=== PATIENT | male | born 1960 | race Caucasian/White ===

== ENCOUNTER 2017-05-30 17:52 | Emergency (ER) | payer OTHER ==
[2017-05-30] MEDS ORDERED: Lidocaine 1% 20 ML MDV INJECT ONE (18:04)
[2017-05-30] MEDS ORDERED: Bupivacaine 0.25% 10 ML SDV INJECT ONE ×2 (18:06→18:34)
[2017-05-30] MEDS ORDERED: Diphtheria,Pertussis(Acell),Tetanus Vaccine 0.5 ML Syringe IM ONE (18:09)
[2017-05-30] MEDS ORDERED: ceFAZolin 1 GM Vial IM ONE (18:09)
--- NOTE | 2017-05-30 18:13 | EDM.PDOC ---
ED HPI GENERAL MEDICAL PROBLEM - General Chief Complaint: Upper Extremity Injury/Pain Stated Complaint: PT HURT RT HAND Time Seen by Provider: 05/30/17 18:03 - History of Present Illness INITIAL COMMENTS - FREE TEXT/NARRATIVE: HISTORY AND PHYSICAL: History of present illness: Patient 57-year-old white male gentleman concern of acute injury to his right hand in the form of an avulsion injury to the first digit of that hand this occurred when he got it pinched while at work. He denies up-to-date tetanus he denies other trauma or concern Review of systems: As per history of present illness and below otherwise all systems reviewed and negative. Past medical history: As per history of present illness and as reviewed below otherwise noncontributory. Surgical history: As per history of present illness and as reviewed below otherwise noncontributory. Social history: No reported history of drug or alcohol abuse. Family history: As per history of present illness and as reviewed below otherwise noncontributory. Physical exam: HEENT: Atraumatic, normocephalic, pupils reactive, negative for conjunctival pallor or scleral icterus, mucous membranes moist, throat clear, neck supple, nontender, trachea midline. Lungs: Clear to auscultation, breath sounds equal bilaterally, chest nontender. Heart: S1S2, regular, negative for clicks, rubs, or JVD. Abdomen: Soft, nondistended, nontender. Negative for masses or hepatosplenomegaly. Negative for costovertebral tenderness. Pelvis: Stable nontender. Genitourinary: Deferred. Rectal: Deferred. Extremities: Patient has a fairly large area primarily on the volar aspect of the first digit that's approximately 4 x 3 cm was good hemostasis is no obvious tendon involvement Neuro: Awake, alert, oriented. Cranial nerves II through XII unremarkable. Cerebellum unremarkable. Motor and sensory unremarkable throughout. Exam nonfocal. Diagnostics: X-ray right hand Therapeutics: Ancef 1 g IM tetanus update Impression: #1 acute injury right hand (see first digit avulsion injury) Definitive disposition and diagnosis as appropriate pending reevaluation and review of above. right thumb Pain Score (Numeric/FACES): 9 - Related Data Allergies Allergy/AdvReac Type Severity Reaction Status Date / Time No Known Allergies Allergy Verified 05/30/17 18:02 Home Meds: Home Meds . [No Known Home Meds] 05/30/17 [History] Review of Systems - Review of Systems Review Of Systems: ROS reveals no pertinent complaints other than HPI. ED EXAM, GENERAL - Physical Exam Exam: See Below (See dictation) Course - Vital Signs Text/Narrative:: Gen. surgery was consulted will see patient in emergency department definitive treatment and disposition will be as per her Last Recorded V/S: Last Vital Signs Temp 36.6 C 05/30/17 18:03 Pulse 102 H 05/30/17 18:03 Resp 18 05/30/17 18:03 BP 117/55 L 05/30/17 18:03 Pulse Ox 102 H 05/30/17 18:03 - Orders/Labs/Meds Orders: Active Orders 24 hr Category Date Time Status Vaccines to be Administered [RC] PER UNIT ROUTINE Care 05/30/17 18:10 Active Hand 2V Rt [CR] Stat Exams 05/30/17 18:09 Ordered Meds: Medications Discontinued Medications Generic Name Dose Route Start Last Admin Trade Name Carmelo PRN Reason Stop Dose Admin Bupivacaine HCl 10 ml 05/30/17 18:06 05/30/17 18:24 Sensorcaine-Mpf 0.25% INJECT 05/30/17 18:07 10 ml ONETIME ONE Administration Bupivacaine HCl 10 ml 05/30/17 18:34 Sensorcaine-Mpf 0.25% INJECT 05/30/17 18:35 ONETIME ONE Bupivacaine HCl Confirm 05/30/17 18:34 Sensorcaine-Mpf 0.25% Administered 05/30/17 18:35 Dose 10 ml .ROUTE .STK-MED ONE Cefazolin Sodium 1 gm 05/30/17 18:09 Ancef IM 05/30/17 18:10 ONETIME ONE Diphtheria/Tetanus/Acell Pertussis 0.5 ml 05/30/17 18:09 Adacel IM 05/30/17 18:10 .ONCE ONE Lidocaine HCl 20 ml 05/30/17 18:04 Xylocaine 1% INJECT 05/30/17 18:05 ONETIME ONE Departure - Departure Time of Disposition: 18:12 Disposition: Home, Self-Care 01 Condition: Good Clinical Impression: Hand injury - Discharge Information Forms: ED Department Discharge Additional Instructions: The following information is given to patients seen in the emergency department who are being discharged to home. This information is to outline your options for follow-up care. We provide all patients seen in our emergency department with a follow-up referral. The need for follow-up, as well as the timing and circumstances, are variable depending upon the specifics of your emergency department visit. If you don't have a primary care physician on staff, we will provide you with a referral. We always advise you to contact your personal physician following an emergency department visit to inform them of the circumstance of the visit and for follow-up with them and/or the need for any referrals to a consulting specialist. The emergency department will also refer you to a specialist when appropriate. This referral assures that you have the opportunity for followup care with a specialist. All of these measure are taken in an effort to provide you with optimal care, which includes your followup. Under all circumstances we always encourage you to contact your private physician who remains a resource for coordinating your care. When calling for followup care, please make the office aware that this follow-up is from your recent emergency room visit. If for any reason you are refused follow-up, please contact the [facility] emergency department at and asked to speak to the emergency department charge nurse. [facility] Professional Building [address] [place] [address], [address] [place] [address] Keflex hydrocodone as prescribed dressing changes twice a day follow-up Dr. Bunn general surgeon call office for appointment 24-48 hours return as needed as discussed - My Orders Last 24 Hours: My Active Orders 05/30/17 18:09 Hand 2V Rt [CR] Stat 05/30/17 18:10 Vaccines to be Administered [RC] PER UNIT ROUTINE - Assessment/Plan Last 24 Hours: My Active Orders 05/30/17 18:09 Hand 2V Rt [CR] Stat 05/30/17 18:10 Vaccines to be Administered [RC] PER UNIT ROUTINE
[2017-05-30] MEDS ORDERED: Bupivacaine 0.25% 10 ML SDV ONE (18:34)
[2017-05-30] MEDS ORDERED: Bacitracin Oint 1 GM U/D Packet ONE (19:09)
[2017-05-30] MEDS ORDERED: Water For Injection, Sterile 20 ML ONE (19:10)
[2017-05-30] MEDS ORDERED: Bacitracin Oint 1 GM U/D Packet TOP ONE (19:14)
--- NOTE | 2017-05-30 19:49 | PCM.CONS ---
H&P History of Present Illness - General Date of Service: 05/30/17 Admit Problem/Dx: Patient is a 57 yo male who presented to the ED after a hand accident at work. His right thumb was caught in a device and pinched. This caused an avulsion injury of the lateral pad of his thumb. He immediately presented to the ED. The patient denies any pain with motion. He has no loss of sensation other than the skin flap. He doesnt know when his last tetanus shot was. right thumb Pain Score (Numeric/FACES): 9 - Related Data Allergies/Adverse Reactions: Allergies Allergy/AdvReac Type Severity Reaction Status Date / Time No Known Allergies Allergy Verified 05/30/17 18:02 Home Medications: Home Meds . [No Known Home Meds] 05/30/17 [History] Past Medical History - Past Health History Medical/Surgical History: Denies Medical/Surgical History Cardiovascular History: Reports: Hypertension Social & Family History - Family History Family Medical History: Noncontributory - Tobacco Use Smoking Status *Q: Current Every Day Smoker Years of Tobacco use: 40 Packs/Tins Daily: 1 - Recreational Drug Use Recreational Drug Use: Yes Drug Use in Last 12 Months: Yes Recreational Drug Type: Reports: Marijuana/Hashish H&P Review of Systems - Review of Systems: Review Of Systems: ROS reveals no pertinent complaints other than HPI. Exam - Exam Exam: See Below - Vital Signs Vital Signs: Last Vital Signs Temp 36.6 C 05/30/17 18:03 Pulse 102 H 05/30/17 18:03 Resp 18 05/30/17 18:03 BP 117/55 L 05/30/17 18:03 Pulse Ox 102 H 05/30/17 18:03 Weight: 96.8 kg - Exam General: Alert, Oriented, Cooperative Extremities: Other (~ 2 x 3 cm skin and soft tissue fragment that is avulsed from the lateral-posterior aspect of his right thumb. It appears slightly dusky but is not completely avascularized appearing. It has some soft tissue attachment along the distal aspect and there are some intact vascular branches. The wound bed is hemostatic and there is no exposed bone or tendon. Brisk capillary refill of the surrounding tissues. Full ROM with no tenderness other than the wound itself. No injury to the rest of the hand or the wrist. ) Peripheral Pulses: 2+: Radial (R) Consult PN Assessment/Plan (1) Hand injury SNOMED Code(s): 830962402 Code(s): S69.90XA - UNSP INJURY OF UNSP WRIST, HAND AND FINGER(S), INIT ENCNTR Current Visit: Yes Problem List Initiated/Reviewed/Updated: Yes Plan: Broad spectrum antibiotics for one week. Will follow up on hand XR. If no evidence of fracture ok to discharge with follow up in two days in my clinic. I visited with a hand surgeon in [place]. If the skin flap dies, then patient will need to follow up with a hand surgeon. Patient should not use right hand for the next week. Dressings to stay in place until I remove them in clinic.
[2017-05-30 21:24] VITALS: BP 105/50
--- NOTE | 2017-05-30 23:59 | OR ---
SURGEON: CHAU MORALES MD DATE OF PROCEDURE: 05/30/2017 PREOPERATIVE DIAGNOSIS: Left thumb injury. POSTOPERATIVE DIAGNOSIS: Left thumb injury. PROCEDURE PERFORMED: Debridement and reattachment of left thumb skin flap. ANESTHESIA: 12 mL of 0.5% Marcaine plain, 8 mL of 1% lidocaine plain. ESTIMATED BLOOD LOSS: 5 mL. FINDINGS: Left lateral posterior thumb skin flap that appeared viable. See consult report for further details. COMPLICATIONS: None. INDICATIONS: The patient is a 57-year-old male who was involved in a work accident today. He had an avulsion injury of the left thumb. The left thumb skin flap contained skin as well as underlying soft tissue from the pad of the thumb. I was called in for complex wound closure. I explained the procedure to the patient including the risks, which include bleeding, infection, damage to surrounding structures, or possible loss of skin flap. The patient verbalized understanding and wished to proceed. PROCEDURE IN DETAIL: The left hand was washed and the wound copiously irrigated with 1 L of normal saline. I then performed a digital block of the thumb with Marcaine and lidocaine. The medial aspect of the wound still had sensation after this. I injected 1% lidocaine plain around this wound edge. Once I had complete anesthesia of the wound bed, I scrubbed it with iodine solution. The left hand was then prepped and draped in standard fashion. I placed interrupted 5-0 Ethibond sutures around the skin flap. I first brought together all four corners of the wound to line up the skin edges. Along the proximal aspect of the skin flap, there was masceration of the tissue. I debrided this sharply with the scissors. I then placed interrupted sutures around the remainder of the edges of the wound which adequately closed it with no large defects. Bacitracin was applied to the wound and I covered it with Adaptic. The wound was then covered with Kerlix. I placed a thumb splint and wrapped this with an Russell wrap. The patient tolerated the procedure well. There are no immediate complications. GIORGIO PRUETT /[id number] MTDD
--- NOTE | 2017-05-31 14:56 | CR ---
EXAM DATE: 05/30/17 PATIENT'S AGE: 57 Patient: KURT DIAZ Facility: [place], [place] Site . Site : [id number] Study: XRay Extremity Right hand [id number]/5/2017 7:54:26 PM Ordering Physician: Doctor May Final Report: INDICATION: Pain, "pinching" injury to 1st digit on right hand. TECHNIQUE: Right hand, two views. COMPARISON: None FINDINGS: Soft tissue swelling of the right thumb. , likely due to soft tissue injury. No fracture or radiopaque soft tissue foreign body. Likely old ulnar styloid process fracture. IMPRESSION: 1. Soft tissue injury to right 1st digit. No acute fracture identified. Dictated by Edwin Bee MD @ 05/30/2017 8:10:32 PM Dictated by: Edwin Bee MD @ 05/30/2017 20:10:36 (Electronic Signature) Report Signed by Proxy. AZAM
== END 2017-05-30 20:16 | disposition home or self-care (01) ==
LOC: MW.ED 17:52
DX: S61.001A Unspecified open wound of right thumb without damage to nail, initial encounter (principal); W23.0XXA Caught, crushed, jammed, or pinched between moving objects, initial encounter; Y92.69 Other specified industrial and construction area as the place of occurrence of the external cause; Y99.0 Civilian activity done for income or pay; Z23 Encounter for immunization
CPT/HCPCS: 73120; 90471; 90715; 96372; 99284; J0690; 99283